=== PATIENT | female | born 1995 ===

== ENCOUNTER 2019-10-13 19:25 | Emergency (ER) | payer SELFPAY ==
[2019-10-13 19:51] VITALS: BP 115/64
--- NOTE | 2019-10-13 20:46 | UC ---
Back Pain HPI - HPI Summary HPI Summary: 3 DAYS OF MID LOW BACK PAIN. HAS DISCOMFORT WHEN WALKING BUT ALSO AT REST. DENIES ANY INJURY OR TRAUMA. NO PREVIOUS SIMILAR SYMPTOMS. DENIES SADDLE ANESTHESIA. NO NUMBNESS/TINGLING IN THE LEGS. NO LOSS OF BOWEL OR BLADDER CONTROL. IBUPROFEN HELPS. - History of Current Complaint Chief Complaint: UCBackPain Stated Complaint: BACK PAIN Time Seen by Provider: 10/13/19 19:50 Hx Obtained From: Patient Hx Last Menstrual Period: 10/08/19 Onset/Duration: Gradual Onset, Lasting Days, Still Present Timing: Constant Severity Initially: Moderate Severity Currently: Moderate Pain Intensity: 6 Pain Scale Used: 0-10 Numeric Back Pain: Is Discrete @ - MID LOW BACK Character: Sharp Aggravating Factor(s): Movement Alleviating Factor(s): Rest, OTC Meds - IBUPROFEN Associated Signs And Symptoms: Positive: Negative - Allergies/Home Medications Allergies/Adverse Reactions: Allergies Allergy/AdvReac Type Severity Reaction Status Date / Time ibuprofen Allergy GI Upset Verified 10/13/19 19:51 Home Medications: Home Medications Acetaminophen 325 mg SUPP [Tylenol 325 mg Supp] 650 mg PO Q6HR 10/13/19 [ History Confirmed 10/13/19] PMH/Surg Hx/FS Hx/Imm Hx - Additional Past Medical History Additional PMH: ANEMIA - Surgical History Surgical History: None - Family History Known Family History: Positive: Non-Contributory - Social History Alcohol Use: Occasionally Substance Use Type: None Smoking Status (MU): Never Smoked Tobacco Review of Systems All Other Systems Reviewed And Are Negative: Yes Constitutional: Positive: Negative Skin: Positive: Negative Respiratory: Positive: Negative Cardiovascular: Positive: Negative Gastrointestinal: Positive: Negative Musculoskeletal: Positive: Myalgia Neurological: Positive: Negative Physical Exam Triage Information Reviewed: Yes Appearance: Well-Appearing, No Pain Distress, Well-Nourished Vital Signs: Initial Vital Signs Temp 97.8 F 10/13/19 19:44 Pulse 55 10/13/19 19:44 Resp 12 10/13/19 19:44 BP 115/64 10/13/19 19:44 Pulse Ox 95 10/13/19 19:44 Laboratory Tests 10/13/19 20:14 POC Urine Color Yellow POC Urine Clarity Clear POC Urine pH 5.5 POC Ur Specif [place] <= 1.005 L POC Urine Protein Negative POC Ur Glucose (UA) Negative POC Urine Ketones Negative POC Urine Blood Negative POC Urine Nitrite Negative POC Urine Bilirubin Negative POC Urine Urobilinogen 0.2 POC U Leukocyte Esteras Negative Vital Signs Reviewed: Yes Eyes: Positive: Conjunctiva Clear ENT: Positive: Hearing grossly normal Neck: Positive: Supple Respiratory: Positive: No respiratory distress, No accessory muscle use Cardiovascular: Positive: Pulses Normal Abdomen Description: Positive: Soft Musculoskeletal: Positive: ROM Intact, No Edema, Other: - MILDLY TENDER MID LOW BACK Neurological: Positive: Alert Psychological: Positive: Age Appropriate Behavior Skin: Negative: Rashes Back Pain Course/Dx - Course Course Of Treatment: LUMBAR SPINE X-RAYS TODAY UNREMARKABLE ON MY INITIAL INTERPRETATION. RADIOLOGY READ PENDING. PATIENTS PRESENTATION IS MOST CONSISTENT WITH MUSCULOSKELETAL STRAIN. HAVE ADVISED TO CONTINUE IBUPROFEN NEEDED. WILL GIVE FLEXERIL. ENCOURAGED REST, STRETCHING, RANGE OF MOTION EXERCISES. FOLLOW-UP WITH [facility]. ADVISED TO GO TO THE ER WITHOUT FAIL IF SYMPTOMS WORSEN. - Differential Dx/Diagnosis Provider Diagnosis: Low back pain Discharge ED - Sign-Out/Discharge Documenting (check all that apply): Patient Departure All imaging exams completed and their final reports reviewed: No - Discharge Plan Condition: Stable Disposition: HOME Prescriptions: Cyclobenzaprine TAB* [Flexeril TAB*] 10 mg PO BID PRN #30 tab PRN Reason: Pain Patient Education Materials: Low Back Strain (ED) Referrals: [facility] [Provider Group] - 2 Weeks Additional Instructions: LUMBAR SPINE X-RAYS TODAY UNREMARKABLE ON MY INITIAL INTERPRETATION. WE WILL CALL YOU TOMORROW IF THE RADIOLOGY READ DIFFERS. SUSPECT MUSCULOSKELETAL PAIN. TAKE IBUPROFEN 600 MG EVERY 6 HOURS NEEDED FOR DISCOMFORT. FLEXERIL BEFORE BED. REST, STRETCH, HEAT. BE SURE TO GO THROUGH SLOW RANGE OF MOTION AND STRETCHING EXERCISES DAILY YOU ARE ABLE TO PREVENT STIFFENING UP AND MAKING THE DISCOMFORT WORSE. - Billing Disposition and Condition Condition: STABLE Disposition: Home
[2019-10-13] MEDS ORDERED: Cyclobenzaprine TAB* 10 MG PO ONE (20:47)
--- NOTE | 2019-10-14 11:18 | UC ---
- Progress Note Progress Note: No change in initial management - EKG/XRAY/CT Xray Comments: Lumbar spine: Unremarkable xray Course/Dx - Diagnoses Provider Diagnoses: Low back pain Discharge ED - Sign-Out/Discharge Documenting (check all that apply): Post-Discharge Follow Up All imaging exams completed and their final reports reviewed: Yes - Discharge Plan Condition: Stable Disposition: HOME Prescriptions: Cyclobenzaprine TAB* [Flexeril TAB*] 10 mg PO BID PRN #30 tab PRN Reason: Pain Patient Education Materials: Low Back Strain (ED) Referrals: [facility] [Provider Group] - 2 Weeks Additional Instructions: LUMBAR SPINE X-RAYS TODAY UNREMARKABLE ON MY INITIAL INTERPRETATION. WE WILL CALL YOU TOMORROW IF THE RADIOLOGY READ DIFFERS. SUSPECT MUSCULOSKELETAL PAIN. TAKE IBUPROFEN 600 MG EVERY 6 HOURS NEEDED FOR DISCOMFORT. FLEXERIL BEFORE BED. REST, STRETCH, HEAT. BE SURE TO GO THROUGH SLOW RANGE OF MOTION AND STRETCHING EXERCISES DAILY YOU ARE ABLE TO PREVENT STIFFENING UP AND MAKING THE DISCOMFORT WORSE. - Billing Disposition and Condition Condition: STABLE Disposition: Home
== END 2019-10-13 21:05 | disposition home or self-care (01) ==
LOC: UCEAST 19:25
DX: M54.5 Low back pain (principal); Z88.8 Allergy status to other drugs, medicaments and biological substances
CPT/HCPCS: 72100; 81003; 99202; A9270-GY; G0463